=== PATIENT | male | born 1985 | race Caucasian/White ===

== ENCOUNTER 2019-03-02 16:11 | Inpatient (IN) | payer BC ==
[~2019-03-02] VITALS: Ht 182.8 cm; Wt 77.8 kg
--- NOTE | ~2019-03-02 | EKG ---
[place], [place] ELECTROCARDIOGRAM REPORT NAME: SOFÍA GARCÍA UNIT #: [id number] ROOM: 519 DOCTOR: CHARISMA DRAFT REPORT BIRTHDATE: [address] 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
[~2019-03-02 16:11] MED LIST: ANAPROX DS550 MG PO; CLARITIN10 MG PO; FLEXERIL10 MG PO; ULTRAM50 MG PO; ZITHROMAX Z PA250 MG PO
[2019-03-02 16:13] VITALS: BP 143/82
[2019-03-02 16:54] LABS: BASO # 0.1 10*3/uL (0.0-0.1); BASO % 0.7 % (0.0-1.0); EOS # 0.1 10*3/uL (0.0-0.4); EOS % 1.6 % (1.0-4.0); HEMATOCRIT 44.8 % (42.0-52.0); HEMOGLOBIN 14.9 g/dl (14.0-18.0); LYMPH # 2.2 10*3/uL (1.3-4.4); LYMPH % 26.6 % (27.0-41.0); MEAN CELL VOLUME 93.3 fl (80.0-94.0); MEAN CORPUSCULAR HGB CONC 33.3 g/dl (33.0-37.0); MONO # 0.5 10*3/uL (0.1-1.0); MONO % 5.9 % (3.0-9.0); NEUT # 5.3 10*3/uL (2.3-7.9); NEUT % 64.7 % (47.0-73.0); PLATELET COUNT AUTOMATED 302 10*3/uL (130-400); RED CELL DISTRI WIDTH 14.5 % (0-14.5); WHITE BLOOD COUNT 8.2 10*3/uL (4.8-10.8)
[2019-03-02 17:10] LABS: ALBUMIN 4.2 gm/dl (3.1-4.5); BUN 10 mg/dl (7-24); CHLORIDE 108 mmol/L (98-107); CREATININE 0.98 mg/dL (0.70-1.30); LIPASE 99 U/L (73-393); POTASSIUM 3.7 mmol/L (3.5-5.1); SGOT/AST 11 IU/L (3-35); SGPT/ALT 31 U/L (12-78); SODIUM 142 mmol/L (136-145)
[2019-03-02 17:11] LABS: ACT PARTIAL THROMBO TIME 27.9 SECONDS (20.0-32.1); INTERNATIONAL NORM RATIO 0.9 (2.0-3.5)
[2019-03-02 17:14] LABS: ALKALINE PHOSPHATASE 51 U/L (45-117); TOTAL PROTEIN 7.5 gm/dL (6.4-8.2)
[2019-03-02 17:18] LABS: BILIRUBIN NEGATIVE (NEGATIVE); BLOOD NEGATIVE (NEGATIVE); CLARITY CLEAR (CLEAR); COLOR YELLOW (YELLOW); GLUCOSE NEGATIVE (NEGATIVE); KETONE NEGATIVE (NEGATIVE); LEUKO ESTERASE NEGATIVE (NEGATIVE); NITRITE NEGATIVE (NEGATIVE); SPECIFIC GRAVITY 1.015 (1.005-1.030); UROBILINOGEN 0.2 E.U./dl (0.2-1.0)
[2019-03-02 17:25] LABS: BACTERIA TRACE; MUCOUS 1+; URINE AMPHETAMINES < 1000 (1000ng/ml); URINE BARBITURATES < 200 (200ng/ml); URINE BENZODIAZEPINES < 200 (200ng/ml); URINE CANNABINOIDS (THC) < 50 (50ng/ml); URINE COCAINE < 300 (300ng/ml); URINE METHADONE < 300 (300ng/ml); URINE OPIATES < 300 (300ng/ml); WBC 0-2 wbc/hpf (0-5)
[2019-03-02 17:26] LABS: URINE PHENCYCLIDINE < 25 (25ng/ml)
[2019-03-02 17:30] VITALS: BP 137/78
--- NOTE | 2019-03-02 17:30 | NUR ---
A 33, admitted to 5E, under the services of KENYETTA Oneill DO with a diagnosis of ALCOHOL WITHDRAWAL. Chief complaint is ALCOHOL WITHDRAWAL. Patient arrived via bed from ER. Monitor applied. Initial assessment completed. Vital signs taken and recorded. KENYETTA ONEILL DO notified of admission to the unit. Orders received. See assessment for past medical history, medications and allergies. Patient and/or family oriented to unit. [facility] visitation policy reviewed. Clothing/patient valuable form completed. MARCELO SHAW
[2019-03-02 20:00] VITALS: BP 139/71
[2019-03-02] MEDS ORDERED: EFFEXOR XR37.5 M1 PO (21:10)
--- NOTE | 2019-03-02 21:13 | NUR ---
NOTIFIED DR CASTLE OF PT MEDS BEING RECONCILED AT BEDSIDE.
[2019-03-03] VITALS: BP 130/74
[2019-03-03 08:00] VITALS: BP 132/82
--- NOTE | 2019-03-03 11:46 | NUR ---
[place] STAFF SPOKE WITH PATIENT ABOUT [facility]. [facility]IENT MEETS [facility]. PATIENT IS WANTING INPATIENT TREATMENT AT [facility]. [place] STAFF WILL FOLLOW UP WITH PATIENT CONCERNING HIS DISCHARGE PLAN. 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
[2019-03-03 12:00] VITALS: BP 140/78
--- NOTE | 2019-03-03 14:48 | NUR ---
PATIENT STATES THAT VISTARIL WAS NOT EFFECTIVE FOR ANXIETY. DOES NOT WANT ANY MORE MEDICATION AT THIS TIME. NO SIGNS OF DT OBSERVED. WILL MONITOR.
--- NOTE | 2019-03-03 15:57 | NUR ---
PATIENT REQUESTING MEDICATION FOR ANXIETY. PATIENT VERY ANXIOUS AND "CANNOT SIT STILL". ATIVAN IV ADMINISTERED PRESCRIBED. WILL MONITOR FOR EFFECTIVENESS.
[2019-03-03 16:00] VITALS: BP 133/84
--- NOTE | 2019-03-03 16:57 | NUR ---
PATIENT STATES THAT ATIVAN WAS EFFECTIVE FOR ANXIETY. PATIENT SITTING IN CHAIR AT THIS TIME LOOKING OUT THE WINDOW. WILL MONITOR.
--- NOTE | 2019-03-03 19:34 | NUR ---
PATIENT REQUESTING MEDICATION FOR ANXIETY. NO TREMORS NOTED AT THIS TIME. VISTARIL ADMINISTERED PRESCRIBED. WILL MONITOR FOR EFFECTIVENESS.
[2019-03-03 20:00] VITALS: BP 126/77
--- NOTE | 2019-03-03 22:33 | NUR ---
PATIENT SLEEPING AT THIS TIME DESPITE ASKING FOR ATIVAN. WILL REASSESS LATER
[2019-03-04] VITALS: BP 123/82
[2019-03-04 08:00] VITALS: BP 130/80
--- NOTE | 2019-03-04 10:13 | NUR ---
PATIENT REQUESTING MEDICATION FOR ANXIETY. VISTARIL ADMINISTERED PRESCRIBED. WILL MONITOR FOR EFFECTIVENESS.
--- NOTE | 2019-03-04 11:13 | NUR ---
PATIENT STATES THAT VISTARIL WAS EFFECTIVE. WILL MONITOR.
[2019-03-04 12:00] VITALS: BP 134/76
--- NOTE | 2019-03-04 15:18 | NUR ---
[place] STAFF FOLLOWED UP WITH PATIENT. PATIENT CHANGED HIS MIND AND HE DOES NOT WANT TO GO TO [facility] FOR INPATIENT TREATMENT. PAT[facility] [place] [facility]PATIENT TREATMENT. PATIENT'S APPOINTMENT IS February AT 6:00PM. PATIENT AGREES AND UNDERSTANDS HIS AFTERCARE PLAN. 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
[2019-03-04 16:00] VITALS: BP 134/78
[2019-03-04 20:00] VITALS: BP 135/78
--- NOTE | 2019-03-04 21:57 | NUR ---
PATIENT IS RESTING IN BED WITH NO C/O VOICED AT THIS TIME. NO S/S OF DISTRESS NOTED. CALL LIGHT IS WITHIN REACH.
[2019-03-05] VITALS: BP 124/80
[2019-03-05 06:32] LABS: BASO # 0.1 10*3/uL (0.0-0.1); BASO % 0.8 % (0.0-1.0); EOS # 0.3 10*3/uL (0.0-0.4); EOS % 4.2 % (1.0-4.0); HEMATOCRIT 42.5 % (42.0-52.0); HEMOGLOBIN 13.8 g/dl (14.0-18.0); LYMPH # 2.1 10*3/uL (1.3-4.4); LYMPH % 35.5 % (27.0-41.0); MEAN CELL VOLUME 96.4 fl (80.0-94.0); MEAN CORPUSCULAR HGB 31.3 pg (27.0-31.0); MEAN CORPUSCULAR HGB CONC 32.5 g/dl (33.0-37.0); MEAN PLATELET VOLUME 9.5 fl (9.6-12.3); MONO # 0.5 10*3/uL (0.1-1.0); MONO % 7.6 % (3.0-9.0); NEUT % 51.2 % (47.0-73.0); PLATELET COUNT AUTOMATED 237 10*3/uL (130-400); RED BLOOD COUNT 4.41 10*6/uL (4.50-5.90); RED CELL DISTRI WIDTH 14.2 % (0-14.5); WHITE BLOOD COUNT 5.9 10*3/uL (4.8-10.8)
[2019-03-05 06:48] LABS: CREATININE 1.04 mg/dL (0.70-1.30)
[2019-03-05 08:08] VITALS: BP 130/75
[2019-03-05] MEDS ORDERED: ATARAX,VISTARIL50 MG PO (10:41)
--- NOTE | 2019-03-05 11:52 | NUR ---
Discharge instructions reviewed with patient/family. Patient receptive and verbalizes understanding. Follow-up care arranged. Written instructions given to patient/family. LIZ GONZALEZ
== END 2019-03-05 11:52 | disposition home or self-care (01) | DRG 897 ==
LOC: ED 16:11 → 5E 16:49 → EDHOLD 16:49 → 5E 17:14
PROVIDERS: Emergency Medicine; ADMIT Internal Medicine
DX: F10.220 Alcohol dependence with intoxication, uncomplicated (principal); E87.8 Other disorders of electrolyte and fluid balance, not elsewhere classified; F10.230 Alcohol dependence with withdrawal, uncomplicated; F41.9 Anxiety disorder, unspecified; F32.9 Major depressive disorder, single episode, unspecified; R73.9 Hyperglycemia, unspecified; E83.41 Hypermagnesemia; F17.220 Nicotine dependence, chewing tobacco, uncomplicated; Z71.6 Tobacco abuse counseling; Z81.1 Family history of alcohol abuse and dependence; Z79.899 Other long term (current) drug therapy

== ENCOUNTER 2023-09-09 20:16 | Emergency (ER) | payer BC ==
[~2023-09-09] VITALS: Ht 182.8 cm; Wt 117.9 kg
[~2023-09-09 20:16] MED LIST changes: +ATARAX,VISTARIL50 MG PO; +EFFEXOR XR37.5 M1 PO
[2023-09-09 20:59] LABS: BILIRUBIN Negative (Negative); BLOOD Negative (Negative); CLARITY Clear (Clear); COLOR Yellow (Yellow); GLUCOSE Negative (Negative); KETONE Negative (Negative); LEUKO ESTERASE Negative (Negative); NITRITE Negative (Negative); PH 5.5 (4.5-8.0); SPECIFIC GRAVITY <= 1.005 (1.001-1.030); UROBILINOGEN 0.2 E.U./dl (0.0-1.0)
[2023-09-09 21:01] LABS: BASO # 0.1 10*3/uL (0.0-0.1); BASO % 0.8 % (0.0-1.0); EOS # 0.3 10*3/uL (0.0-0.4); EOS % 3.7 % (1.0-4.0); LYMPH # 2.3 10*3/uL (1.3-4.4); LYMPH % 29.8 % (27.0-41.0); MEAN CELL VOLUME 94.1 fl (80.0-94.0); MEAN CORPUSCULAR HGB 31.9 pg (27.0-31.0); MEAN CORPUSCULAR HGB CONC 33.9 g/dl (33.0-37.0); MEAN PLATELET VOLUME 9.2 fl (9.6-12.3); MONO # 0.7 10*3/uL (0.1-1.0); NEUT # 4.3 10*3/uL (2.3-7.9); NEUT % 56.1 % (47.0-73.0); PLATELET COUNT AUTOMATED 304 10*3/uL (130-400); RED BLOOD COUNT 4.89 10*6/uL (4.50-5.90); RED CELL DISTRI WIDTH 13.2 % (0-14.5); WHITE BLOOD COUNT 7.8 10*3/uL (4.8-10.8)
[2023-09-09 21:06] LABS: URINE AMPHETAMINES Negative (1000ng/ml); URINE BARBITURATES Negative (200ng/ml); URINE BENZODIAZEPINES Negative (200ng/ml); URINE CANNABINOIDS (THC) Negative (50ng/ml); URINE COCAINE Negative (300ng/ml); URINE METHADONE Negative (300ng/ml); URINE OPIATES Negative (300ng/ml); URINE PHENCYCLIDINE Negative (25ng/ml)
[2023-09-09 21:12] LABS: ACT PARTIAL THROMBO TIME 29.9 SECONDS (20.0-32.1)
[2023-09-09 21:24] LABS: BACTERIA TRACE
[2023-09-09 21:46] LABS: ALKALINE PHOSPHATASE 55 U/L (46-116); BUN 6 mg/dl (9-23); CHLORIDE 99 mmol/L (98-107); CPK 627 U/L (34-171); LIPASE 41 U/L (12-53); POTASSIUM 3.9 mmol/L (3.4-5.1); SGPT/ALT 42 U/L (5-49); TOTAL PROTEIN 7.4 gm/dL (6.0-8.0)
== END 2023-09-10 10:40 ==
LOC: ED 20:16
PROVIDERS: Internal Medicine
DX: F43.21 Adjustment disorder with depressed mood (principal); Z98.890 Other specified postprocedural states; F10.10 Alcohol abuse, uncomplicated; F17.220 Nicotine dependence, chewing tobacco, uncomplicated; Z79.899 Other long term (current) drug therapy; R10.2 Pelvic and perineal pain